=== PATIENT | male | born 1995 | race African-American/Black ===

== ENCOUNTER 2017-11-11 22:47 | Emergency (ER) | payer OTHER ==
[2017-11-11] MEDS ORDERED: EPINEPHRINE INJ/PF 1 MG/1 ML AMPULE IM ONE (23:08)
[2017-11-11] MEDS ORDERED: FAMOTIDINE INJ/PF 20 MG/2 ML SDV IV ONE (23:09)
[2017-11-11] MEDS ORDERED: DIPHENHYDRAMINE HCL 50 MG/ML VIAL IV ONE (23:09)
--- NOTE | 2017-11-11 23:14 | ER Document Report ---
ED General - General Chief Complaint: Allergic Reaction Stated Complaint: POSSIBLE ALLERGIC REACTION Time Seen by Provider: 11/11/17 23:04 Notes: Patient is a 27-year-old male who presents with complaint of throat tightness difficulty breathing after eating shrimp sauce at [employer]. He says he has history of peanut allergy. He does not think he had a penis but is unsure what could have possibly been in the shrimp sauce. Denies a rash. Denies any other complaints at this time. No vomiting. TRAVEL OUTSIDE OF THE [place] IN LAST 30 DAYS: No - Related Data Allergies/Adverse Reactions: No Known Allergies Allergy (Unverified 11/11/17 22:47) Past Medical History - Social History Smoking Status: Never Smoker Frequency of alcohol use: None Drug Abuse: None Family History: Reviewed & Not Pertinent Patient has suicidal ideation: No Patient has homicidal ideation: No Renal/ Medical History: Denies: Hx Peritoneal Dialysis Review of Systems - Review of Systems Notes: My Normal Review Basic REVIEW OF SYSTEMS: CONSTITUTIONAL : Denies fever, chills, or sweats. Denies recent illness. EENT: Throat tightness. RESPIRATORY: Difficulty breathing. GASTROINTESTINAL: Denies abdominal pain. Denies nausea, vomiting, or diarrhea. Denies constipation. Last BM: MUSCULOSKELETAL: Denies neck or back pain or joint pain or swelling. SKIN: Denies rash or skin lesions. NEUROLOGICAL: Denies altered mental status or loss of consciousness. Denies headache. Denies weakness or paralysis or loss of use of either side. Denies problems with gait or speech. Denies sensory or motor loss. ALL OTHER SYSTEMS REVIEWED AND NEGATIVE. Physical Exam - Vital signs Vitals: Temp Pulse BP Pulse Ox 98.4 F 91 145/85 H 100 11/11/17 22:51 11/11/17 22:51 11/11/17 22:51 11/11/17 22:51 - Notes Notes: General Appearance: Patient is comfortable appearing. His voice is hoarse. He is not working hard to breathe. No stridor. No audible wheezing. Vitals: reviewed, See vital signs table. Head: no swelling or tenderness to the head Eyes: PERRL, EOMI, Conjuctiva clear Mouth: No decreasd moisture Throat: Some edema of the posterior pharynx. No glossal swelling. Neck: Supple, no neck tenderness Lungs: No wheezing, No rales, No rhonci, No accessory muscle use, good air exchange bilaterally. Heart: Normal rate, Regular rythm, No murmur, no rub Abdomen: Normal BS, soft, No rigidity, mild epigastric abdominal tenderness, No guarding, no rebound Extremities: strength 5/5 in all extremities, good pulses in all extremities, no swelling or tenderness in the extremities, no edema. Skin: warm, dry, appropriate color, no rash Neuro: speech clear, oriented x 3, normal affect, responds appropriately to questions. Course - Re-evaluation Re-evalutation: 11/11/17 23:13 On exam patient does have a little bit pharyngeal edema. He is a little hoarse voice but has no stridor and is breathing well without difficulty. I have ordered 0.3 mg of epinephrine IM. Patient is receiving that now. Patient is also being given Benadryl, Pepcid, and Solu-Medrol. I will closely reevaluate the patient. 11/11/17 23:23 Patient is received IM epinephrine. He feels as if he started to improve some. He has also received Benadryl, Pepcid, and Solu-Medrol. I will reassess patient again shortly to make sure he is improving. Patient has been given a call rapp and informed to it immediately if he feels that he is worsening in any way. 11/11/17 23:39 On reevaluation patient continues to be getting better. He is always sleepy from Benadryl. His voice is improving. He says he feels as if his throat is improving as well. 11/12/17 00:18 His voice is back to normal. I informed him we will monitor him for another 1- 2 hours to make sure he does not have any rebound reaction. Patient is agreeable to this. 11/12/17 01:47 Patient symptoms are still completely resolved he looks very well. Will discharge patient home. I prescribed an EpiPen. I will place him on tapering dose prednisone. I informed him he must come back to ER immediately if he has recurrent reaction or any throat swelling. I informed him to avoid any type of foods that he not in them. I informed him to take Benadryl for has some slight itching; however, if his symptoms progress by the Benadryl he must return to the ER immediately. Patient agrees with plan will be discharged home. Dictation of this chart was performed using voice recognition software; therefore, there may be some unintended grammatical errors. - Vital Signs Vital signs: Temp Pulse Resp BP Pulse Ox 98.8 F 91 14 131/73 H 100 11/12/17 02:01 11/11/17 22:51 11/12/17 02:01 11/12/17 02:01 11/12/17 02:01 Discharge - Discharge Clinical Impression: Allergic reaction Qualifiers: Encounter type: initial encounter Qualified Code(s): T78.40XA - Allergy, unspecified, initial encounter Condition: Good Disposition: HOME, SELF-CARE Additional Instructions: ACUTE ALLERGIC REACTION: Your symptoms are due to an allergic reaction. Allergy can cause hives, swelling of the hands, feet, and face, hoarseness, and difficulty swallowing or breathing. It may be due to exposure to medication, animal dander, foods, infection, or insect bites. Medication is a common cause, even when prior use of this same medication caused no problems. Acute treatment may include adrenalin and antihistamines. Usually, the specific allergic agent can't be identified unless repeated episodes occur. Home treatment includes the following: (1) Stop any suspicious medications. This will be discussed with you. (2) Oral antihistamines for the next four to five days. Example, diphenhydramine (Benadryl) every four hours. (3) You may also use cimetidine (Tagamet), ranitidine (Zantac), or famotidine ( Pepcid) every four hours if diphenhydramine is not controlling itching and hives. (4) Avoid aspirin until the hives completely disappear. (5) Avoid hot baths or showers until the hives are completely gone. Call the doctor if faintness, difficulty swallowing, tightness in the chest , or wheezing occurs. EPINEPHRINE: An injection of epinephrine (also called adrenalin) is used to treat allergic reactions, asthma, and some other medical conditions. It is a stimulant medication that consticts blood vessels, relaxes smooth muscles such as in the bronchioles of the lung, elevates blood pressure, and increases heart rate. It can temporarily make you feel very nervous and shakey, but it's affects last only a short time, about 15 to 30 minutes at most. STEROID MEDICATION INJECTION: You have been given an injection of medicine of the cortisone/steroid class. This medication is used to control inflammation or allergy. It is often continued as a pill for a short period of time, until the acute process subsides. There are usually no side effects from short-term use of cortisone-like medications. Some persons feel an increased sense of well-being and are not sleepy at bedtime. Long-term use of cortisone medications is best avoided, unless required for a severe condition. If your condition does not remit, or relapses after the course of corticosteroid medication, you should consult your physician. STEROID MEDICATION: You have been given a medicine of the cortisone/steroid class. This medication is used to control inflammation or allergy. It is usually only given for a short period of time, until the acute process subsides. There are usually no side effects from short-term use of cortisone-like medications. Some persons feel an increased sense of well-being and are not sleepy at bedtime. Long-term use of cortisone medications is best avoided, unless required for a severe condition. If your condition does not remit, or relapses after the course of corticosteroid medication, you should consult your physician. ANTIHISTAMINES: An antihistamine has been given and/or prescribed to control your symptoms. Antihistamines are used for many reasons, including itching, watering eyes, runny nose, allergic swelling, hives, and insect stings. Antihistamines may cause drowsiness, especially with the first dose. Do not operate machinery or drive while under the effects of the medication. Other common side effects include dry mouth and eyes. In older persons, antihistamines can occasionally cause urinary retention, constipation, and trouble focusing the eyes. Do not combine the medication with alcohol, or with any other medication without talking to your doctor. FOLLOW-UP CARE: If you have been referred to a physician for follow-up care, call the physician s office for an appointment as you were instructed or within the next two days. If you experience worsening or a significant change in your symptoms, notify the physician immediately or return to the Emergency Department at any time for re-evaluation. Please return to the ER immediately if you have to use the Epipen, have facial swelling, tongue swelling, throat swelling, difficulty breathing, or feel that your reaction is becoming severe. Please use the Epik pen if you have any facial swelling, tongue swelling, or difficulty breathing. Prescriptions: Epinephrine [Epipen 2-José Miguel] 0.3 mg IM ASDIR PRN #1 packet PRN Reason: Prednisone 10 mg PO ASDIR #42 tablet Forms: Return to Work Referrals: JORDAN BABCOCK, [Primary Care Provider] - Follow up as needed
[2017-11-11] MEDS ORDERED: METHYLPREDNISOLONE INJ 125 MG/2 ML SDV IV ONE (23:33)
[2017-11-12 02:15] VITALS: BP 131/73
== END 2017-11-12 02:16 | disposition home or self-care (01) ==
LOC: ER 22:47
DX: T78.40XA Allergy, unspecified, initial encounter (principal); J39.2 Other diseases of pharynx; R49.0 Dysphonia; X58.XXXA Exposure to other specified factors, initial encounter
CPT/HCPCS: 96372; 96374; 96375; 99283; J0171; J1200; J2930; S0028